=== PATIENT | female | born 1995 | race Caucasian/White ===

== ENCOUNTER 2023-05-05 12:59 | Outpatient (CLI) | payer OTHER, SELFPAY | END 2023-05-05 13:00 | disposition home or self-care (01) | PROVIDERS: PCP Family Medicine; Visit Provider Family Medicine | DX: Z00.00 Encounter for general adult medical examination without abnormal findings (principal); Z11.3 Encounter for screening for infections with a predominantly sexual mode of transmission; Z13.6 Encounter for screening for cardiovascular disorders | CPT/HCPCS: 80048; 80061; 86703; 87491; 87591 ==

== ENCOUNTER 2024-05-29 17:20 | Outpatient (CLI) | payer OTHER, SELFPAY | END 2024-05-29 17:21 | disposition home or self-care (01) | LOC: NFLDREF 06-01 18:56 | PROVIDERS: PCP Family Medicine; Referring Provider Family Medicine | DX: Z11.3 Encounter for screening for infections with a predominantly sexual mode of transmission (principal); N89.8 Other specified noninflammatory disorders of vagina; N76.0 Acute vaginitis; B96.89 Other specified bacterial agents as the cause of diseases classified elsewhere | CPT/HCPCS: 87491; 87591 ==

== ENCOUNTER 2025-05-16 13:16 | Outpatient (CLI) | payer OTHER, SELFPAY | END 2025-05-16 13:17 | disposition home or self-care (01) | PROVIDERS: PCP Family Medicine; Visit Provider Family Medicine | DX: Z34.91 Encounter for supervision of normal pregnancy, unspecified, first trimester (principal); R63.4 Abnormal weight loss; Z11.3 Encounter for screening for infections with a predominantly sexual mode of transmission; R53.83 Other fatigue; F98.8 Other specified behavioral and emotional disorders with onset usually occurring in childhood and adolescence | CPT/HCPCS: 80053; 80061; 84443; 84702; 84703; 86592; 86703; 87491; 87591 ==

== ENCOUNTER 2025-05-17 09:14 | Outpatient (CLI) | payer OTHER, SELFPAY | END 2025-05-17 09:15 | disposition home or self-care (01) | PROVIDERS: PCP Family Medicine; Visit Provider Family Medicine | DX: Z11.3 Encounter for screening for infections with a predominantly sexual mode of transmission (principal); Z11.59 Encounter for screening for other viral diseases | CPT/HCPCS: 86706; 86803; 87340 ==

== ENCOUNTER 2025-05-19 11:20 | Outpatient (CLI) | payer OTHER, SELFPAY ==
--- NOTE | 2025-05-19 11:30 | CRLHL7_ITS ---
For Patients: As a result of the Century Cures Act, medical imaging exams and procedure reports are released immediately into your electronic medical record. You may view this report before your referring provider. If you have questions, please contact your health care provider. OB ULTRASOUND INDICATION: Dating/viability. TECHNIQUE: Real time chaves scale imaging of the fetus was performed. Transvaginal imaging performed. LMP: Unknown-Sept?. Previous US: No. CRL: N/A. FHR: N/A. Gestational sac: 0.3 cm. Appears within normal limits. 5 weeks 0 days. Yolk sac: N/A. N/V. Right ovary: Within normal limits. 2.3 x 1.6 x 1.8 cm. Left ovary: Within normal limits. 3.5 2.0 x 2.0 cm. CL. IMPRESSION: Intrauterine gestational sac is present which measures 3.2 mm, 5 weeks 0 days. No pole or yolk sac. Follow-up in 2-3 weeks recommended. Conner Feldman M.D. Diagnostic Radiologist [email or web address] ZAKIA/Dictated by: Conner Feldman MD @ 05/19/2025 8:29:00 PM (Electronically Signed)
== END 2025-05-19 11:21 | disposition home or self-care (01) ==
LOC: US 11:20
PROVIDERS: PCP Family Medicine; Visit Provider Advanced Practice Midwife
DX: Z34.91 Encounter for supervision of normal pregnancy, unspecified, first trimester (principal); Z64.0 Problems related to unwanted pregnancy
CPT/HCPCS: 76817

== ENCOUNTER 2025-06-03 17:17 | Outpatient (CLI) | payer OTHER, SELFPAY | END 2025-06-03 17:18 | disposition home or self-care (01) | LOC: NFLDREF 06-07 15:45 | PROVIDERS: PCP Family Medicine; Referring Provider Family Medicine; Visit Provider Midwife | DX: O02.1 Missed abortion (principal) | CPT/HCPCS: 84702 ==

== ENCOUNTER 2025-06-10 16:18 | Outpatient (CLI) | payer OTHER, SELFPAY | END 2025-06-10 16:19 | disposition home or self-care (01) | LOC: NFLDREF 06-12 17:56 | PROVIDERS: PCP Family Medicine; Referring Provider Family Medicine; Visit Provider Advanced Practice Midwife | DX: Z34.90 Encounter for supervision of normal pregnancy, unspecified, unspecified trimester (principal) | CPT/HCPCS: 84702; 84703 ==